=== PATIENT | male | born 1955 | race Caucasian/White ===

== ENCOUNTER → 2017-01-06 | Outpatient (CLI) | payer BC ==
[~2017-01-06] MED LIST: CIPR250T PO; SIMV40TA3 PO
[2017-01-06] MEDS: IOHEXOL 240 MG/ML 50ML VIAL. PO ONE (09:42)
[2017-01-06] MEDS: IOHEXOL 300 MG/ML 100ML VIAL. IV ONE (09:42)
--- NOTE | 2017-01-06 10:07 | KCIC ---
PQRS Compliance Statement: One or more of the following individualized dose reduction techniques were utilized for this examination: 1. Automated exposure control 2. Adjustment of the mA and/or kV according to patient size 3. Use of iterative reconstruction technique CT ABD PELV W/ORAL IV CONTRAST: 01/06/2017. Indication: 61 years old Male. Left lower quadrant abdominal pain. Comparison: None available Technical: Multiple sequential axial CT images were obtained of the abdomen and pelvis from the lung bases to the ischial tuberosities following the uneventful IV administration of 100 cc Omnipaque 300. Oral contrast was used. Findings: LUNG BASES: There is subsegmental atelectasis at the left lung base . Heart size is within normal limits. ABDOMEN: LIVER: Within normal limits BILE DUCTS: Normal caliber. GALLBLADDER: No calcified gallstones. PANCREAS: Unremarkable. SPLEEN: Unremarkable. ADRENAL GLANDS: Within normal limits. KIDNEYS: Symmetric without hydronephrosis. No suspicious renal mass is identified. BOWEL: Nondilated without adjacent inflammatory changes. Appendix is normal in appearance. PERITONEUM: No ascites. No fluid collection. VASCULATURE: No abdominal aortic aneurysm. RETROPERITONEUM: Within normal limits. ABDOMINAL WALL: Within normal limits. Postoperative changes from inguinal hernia repair. PELVIS: PELVIC ORGANS: Heterogeneous appearance of the prostate gland with a focal 8 mm area of hyperattenuation suggestive of proteinaceous contents or blood products. Prostate measures 5.3 x 4.6 x 4.5 cm. Vasectomy clips are identified. URINARY BLADDER: Within normal limits. LYMPH NODES: No lymphadenopathy in the abdomen or pelvis. BONES: No acute fracture. IMPRESSION: 1. No acute abnormality is identified in the abdomen or pelvis. Specifically. No pericolonic or periappendiceal inflammatory changes. 2. Heterogeneous appearance of the prostate measuring 5.3 x 4.6 x 4.5 cm. Recommend correlation with PSA. Electronically signed by: Jenny Ferrer MD (01/06/2017 10:03 AM) [place] [id number]
== END | disposition home or self-care (01) ==
LOC: KCIC CT 08:33
PROVIDERS: ATTEND Family Medicine
DX: R10.32 Left lower quadrant pain (principal)
CPT/HCPCS: 74177; Q9966; Q9967